=== PATIENT | female | born 1965 | race Caucasian/White ===

== ENCOUNTER 2023-01-18 19:20 | Emergency (ER) | payer BC, SELFPAY ==
[2023-01-18 19:24] VITALS: BP 112/86; PULSE 81; RESP 16; TEMP 36.4; O2SAT 95; BMI 28.8
--- NOTE | 2023-01-18 20:06 | EX.ED.DYSGE1 ---
HPI History of Present Illness Chief Complaint: Overdose Detail of Chief Complaint: Accidental overdose and vomiting Informant: patient Narrative Narrative: Patient presents to the emergency department with complaint of vomiting. Patient states that she accidentally took too much semaglutide 5 days ago. She was supposed to take 0.5 mL and she took 5 mL that she takes for weight loss. This was the first time she had taken it. Since that time she is been vomiting severely and cannot keep anything down. She complains of upper abdomen pain and cramping. She denies any diarrhea. She denies fevers. Patient has history of hypertension and high cholesterol. She had prior appendectomy and prior hysterectomy. PFSH [facility] Home Medications alprazolam 0.5 mg tablet 0.5 mg PO DAILY 01/18/23 [History Last Taken Unknown] amlodipine 5 mg tablet 5 mg PO DAILY 01/18/23 [History Last Taken Unknown] atorvastatin 20 mg tablet 20 mg PO DAILY 01/18/23 [History Last Taken Unknown] esomeprazole magnesium 40 mg capsule,delayed release (Nexium) 40 mg PO BID 01/18/23 [History Last Taken Unknown] fluoxetine 40 mg capsule 40 mg PO DAILY 01/18/23 [History Last Taken Unknown] losartan 50 mg tablet 50 mg PO DAILY 01/18/23 [History Last Taken Unknown] ondansetron 4 mg disintegrating tablet 4 mg PO Q8H PRN PRN Nausea #10 tabs 01/18/23 [Rx Last Taken Unknown] piroxicam 10 mg capsule 10 mg PO DAILY 01/18/23 [History Last Taken Unknown] prednisone 20 mg tablet 20 mg PO BID #10 tabs 01/18/23 [Rx Last Taken Unknown] quetiapine 400 mg tablet (Seroquel) 400 mg PO DAILY 01/18/23 [History Last Taken Unknown] trazodone 100 mg tablet 100 mg PO QHS 01/18/23 [History Last Taken Unknown] Allergy/AdvReac Type Severity Reaction Status Date / Time trifluoperazine Allergy Anaphylaxis Verified 01/18/23 19:29 [From Stelazine] Social History Smoking Status: Never smoker ROS ROS ED Review of Systems ROS Unobtainable: other Constitutional Constitutional ED: Reports lethargy; Denies chills, fever(s), sweats or weight loss Eyes Eyes: Denies blurry vision, change in vision or diplopia ENT ENT ED: Denies rhinorrhea or sore throat Cardiovascular Cardiovascular: Denies chest pain, orthopnea or racing heartbeat Respiratory/Chest Respiratory/Chest: Denies cough, dyspnea, dyspnea on exertion, orthopnea or sputum Gastrointestinal Gastrointestinal: Reports abdominal pain, nausea and vomiting; Denies diarrhea Genitourinary Genitourinary ED: Denies dysuria, hematuria or urinary frequency Musculoskeletal Musculoskeletal: Denies arthralgias, back pain, myalgias or neck pain Integumentary Denies abscess, Abrasions or rash Neurologic Neurologic: Denies headache(s) or weakness Psychiatric Psychiatric: Denies anxiety, depression or suicidal thoughts Endocrine Endocrinology: Denies polydipsia, polyphagia or polyuria Hematologic/Lymphatic Hematologic/Lymphatic: Denies easy bleeding, easy bruising or lymphadenopathy Allergic/Immunologic Allergic/Immunologic ED: Denies mouth swelling, tongue swelling or urticaria EXAM Physical Exam Const Vital Signs: 01/18/23 19:24 01/18/23 20:07 Temperature 97.5 F L Temperature Source Temporal Pulse Rate 81 Respiratory Rate 16 Respiratory Pattern Normal Blood Pressure 112/86 H Blood Pressure Mean 94 Pulse Ox 95 Positive well nourished and well developed General Appearance ED: well developed and NAD HEENT Reports TM's clear and moist mucous membranes normocephalic and atraumatic; Negative for trauma or tenderness Tympanic Membrane ED: Yes TM's clear Eyes PERRL and EOMs intact bilaterally General Eye ED: Negative for pale conjunctiva or scleral icterus Neck no lymphadenopathy, supple and no JVD General: Negative for tenderness Chest Wall inspection of chest normal and palpation of chest normal Chest: Negative for tenderness Resp normal respiratory effort and clear to auscultation bilaterally Effort and Inspection: Negative for respiratory distress or pain with movement Auscultation: Negative for rhonchi, wheezes or diminished lung sounds Cardio regular rate, regular rhythm, S1 normal heart sound, S2 normal heart sound and no murmurs Peripheral Pulses: pulses 2+ throughout GI normal to inspection, nondistended, normoactive bowel sounds, soft to palpation, non-distended and no masses GI Narrative: Tenderness to epigastric region with guarding. There is no rebound, rigidity, peritoneal signs. Back/Spine no CVA tenderness and no thoracic nor lumbar tenderness Extremity normal to inspection General Extremety ED: Negative for edema General Extremity: Negative for edema Neuro oriented x3, CN's II-XII intact bilaterally, no sensory deficits noted and gait normal Sensorium / Orientation: awake, alert, oriented to person, oriented to place and oriented to time Motor Exam: strength 5/5 throughout and strength abnormal Psych mental status grossly normal Skin no wounds Skin Narrative: Patient has a red raised rash involving the face as well as the trunk and extremities would be consistent with hives. MDM MDM MDM Narrative Medical decision making narrative: Patient presents with accidental overdose of semaglutide and with known side effect being nausea. There is no direct antidote. Overdose occurred 5 days ago. There is concern for pancreatitis as patient has had this in the past and given where her pain is in persistent vomiting will need work-up for this. Patient will have an IV line established and she will be given fluids and basic labs will be ordered. Patient had a CBC with differential, 7.0 with a hemoglobin of 15 and platelet count of 253. Chemistries unremarkable other than a slightly depressed potassium of 3.4. Glucose was 137. Lipase 48. LFTs normal. Lactate was normal at 0.6. Urinalysis was normal. CT scan of the abdomen pelvis without contrast Lab Data Attestation: I reviewed the patient's lab results. Labs: Laboratory Results - last 24 hr 01/18/23 01/18/23 01/18/23 20:10 20:10 20:10 WBC 7.0 RBC 5.02 Hgb 15.5 H Hct 46.1 MCV 91.8 MCH 30.9 MCHC 33.6 RDW Std Deviation 38.5 RDW Coeff of Frantz 11.4 L Plt Count 253 MPV 9.7 Immature Gran % (Auto) 0.300 Neut % (Auto) 59.6 Lymph % (Auto) 26.6 Kemper % (Auto) 7.7 Eos % (Auto) 4.9 Baso % (Auto) 0.9 Absolute Neuts (auto) 4.2 Absolute Lymphs (auto) 1.86 Nucleated RBC % 0 Sodium 137 Potassium 3.4 L Chloride 105 Carbon Dioxide 24.0 Anion Gap 8 BUN 19 H Creatinine 0.91 Estim Creat Clear Calc 55.06 Est GFR (MDRD) Af Amer 82 Est GFR (MDRD) Non-Af 67 BUN/Creatinine Ratio 21.0 H Glucose 137 H Lactic Acid 0.6 Calcium 9.5 Total Bilirubin 0.50 AST 13 L ALT 19 Alkaline Phosphatase 91 Total Protein 7.3 Albumin 3.8 Globulin 3.5 Albumin/Globulin Ratio 1.1 Lipase 48 Urine Color Urine Clarity Urine pH Ur Specific Hudson Urine Protein Urine Glucose (UA) Urine Ketones Urine Occult Blood Urine Nitrite Urine Bilirubin Urine Urobilinogen Ur Leukocyte Esterase Urine RBC Urine WBC Ur Squamous Epith Cells Urine Bacteria Urine Mucus 01/18/23 21:09 WBC RBC Hgb Hct MCV MCH MCHC RDW Std Deviation RDW Coeff of Frantz Plt Count MPV Immature Gran % (Auto) Neut % (Auto) Lymph % (Auto) Kemper % (Auto) Eos % (Auto) Baso % (Auto) Absolute Neuts (auto) Absolute Lymphs (auto) Nucleated RBC % Sodium Potassium Chloride Carbon Dioxide Anion Gap BUN Creatinine Estim Creat Clear Calc Est GFR (MDRD) Af Amer Est GFR (MDRD) Non-Af BUN/Creatinine Ratio Glucose Lactic Acid Calcium Total Bilirubin AST ALT Alkaline Phosphatase Total Protein Albumin Globulin Albumin/Globulin Ratio Lipase Urine Color Yellow Urine Clarity Clear Urine pH 6.0 Ur Specific Hudson 1.015 Urine Protein Negative Urine Glucose (UA) Normal Urine Ketones 5 H Urine Occult Blood 25 H Urine Nitrite Negative Urine Bilirubin Negative Urine Urobilinogen Normal Ur Leukocyte Esterase 25 H Urine RBC 0 SEEN Urine WBC 0-5 SEEN Ur Squamous Epith Cells 0 SEEN Urine Bacteria 0 SEEN Urine Mucus 0 SEEN Radiography Diagnostic Testing: Clinical Impression(s) from Imaging Studies Abdomen/Pelvis CT 01/18/23 21:15 IMPRESSION: (NOT LISTED IN ORDER OF SIGNIFICANCE) There are no acute findings. There are multiple colonic diverticula consistent with diverticulosis. Other findings as above. Electronically Signed: Larry Cheung MD at 21:50 EDT Reading Location ID and State: [facility] / ID , Service support , Discharge Plan Triage Chief Complaint: Overdose ED Provider: Deanna Weiss Dx/Rx/DC Orders Clinical Impression: Accidental drug overdose, Vomiting, Urticaria Instructions: ED Drug Reaction, Other, ED Hives (Adult), ED Vomiting (Adult) Prescriptions: New ondansetron [ondansetron] 4 mg tablet,disintegrating 4 mg PO Q8H PRN PRN (Reason: Nausea) Qty: 10 0RF prednisone 20 mg tablet 20 mg PO BID Qty: 10 0RF No Action losartan 50 mg Tablet 50 mg PO DAILY fluoxetine 40 mg Capsule 40 mg PO DAILY atorvastatin 20 mg Tablet 20 mg PO DAILY amlodipine 5 mg Tablet 5 mg PO DAILY alprazolam 0.5 mg Tablet 0.5 mg PO DAILY trazodone 100 mg Tablet 100 mg PO QHS esomeprazole magnesium [Nexium] 40 mg Capsule,Delayed Release(Dr/Ec) 40 mg PO BID piroxicam 10 mg Capsule 10 mg PO DAILY quetiapine [Seroquel] 400 mg Tablet 400 mg PO DAILY Primary Care Provider: Jenny Doctor,Out of Referrals: Colleen Roberts MD [Med Staff - [employer] Project Manager] - 3-5 Days [facility] Doctor,Out of [Primary Care Provider] - Disposition Disposition: Home, Self Care
[2023-01-18] MEDS: 0.9% Normal Saline 1,000 ML 1000 ML IV (20:10)
[2023-01-18] MEDS: Ondansetron 4 MG/2 ML Vial IV (20:19)
[2023-01-18 20:31] LABS: Absolute Lymphocyte Count 1.86 X10^3/uL (0.83-4.51); Absolute Neutrophil Count 4.2 X10^3/uL (2.0-7.7); Basophil# 0.06 X10^3/uL; Basophil% 0.9 % (0-1); Eosinophil# 0.34 X10^3/uL; Eosinophils% 4.9 % (0-5); Hematocrit 46.1 % (37-47); Hemoglobin 15.5 g/dL (12.0-15.0); Lymphocyte # 1.86 X10^3/ul (0.83-4.51); Lymphocyte % 26.6 % (19-41); Mean Corp Hgb Conc 33.6 g/dL (32-36); Mean Corpuscular Hgb 30.9 pg (27.0-32.0); Mean Corpuscular Volume 91.8 fL (81-99); Mean Platelet Vol. 9.7 fl (6.2-12.0); Monocyte# 0.54 X10^3/uL; Monocyte% 7.7 % (0-10); NRBC Flagged by Analyzer 0 % (0-5); Neutrophil # 4.16 X10^3/uL (2.7-7.7); Neutrophil % 59.6 % (47-70); Platelet Count 253 K/mm3 (150-450); RBC Distribution Width CV 11.4 % (11.6-14.6); RBC Distribution Width SD 38.5 fl (35.1-43.9); Red Blood Count 5.02 M/mm3 (4.2-5.4)
[2023-01-18 20:48] LABS: ALB/GLOB Ratio 1.1 RATIO (0.9-2.4); AST(SGOT) 13 U/L (15-37); Alanine Aminotransfer ALT/SGPT 19 U/L (13-56); Albumin, Serum 3.8 g/dL (3.2-5.0); Alkaline Phosphatase 91 U/L (45-117); Anion Gap 8 (5-15); BUN 19 mg/dL (7-18); Calcium,Total 9.5 mg/dL (8.5-10.1); Chloride 105 mmol/L (98-107); Creatinine, Serum 0.91 mg/dL (0.55-1.02); EST Glomerular Filtration Rate 67 mL/min (>60); Est Glom Filt Rate - Afr Amer 82 mL/min (>60); Estimated Creatinine Clearance 55.06 ml/min; Globulin 3.5 g/dL (2.2-4.2); Glucose 137 mg/dL (74-106); Lipase 48 U/L (13-75); Potassium 3.4 mmol/L (3.5-5.1); Protein, Total 7.3 g/dL (6.4-8.2); Sodium Level 137 mmol/L (136-145)
[2023-01-18 20:57] LABS: Lactic Acid 0.6 mmol/L (0.4-1.9)
[2023-01-18 21:15] LABS: Bacteria 0 SEEN /hpf (None Seen); Mucous, Urine 0 SEEN /hpf (<or=2+); Red Blood Cells-Urine 0 SEEN /hpf (0-5); Squamous Epithelial Cells - UA 0 SEEN /hpf (5-10)
--- NOTE | 2023-01-18 21:15 | CT_ITS ---
STUDY: CT Abdomen And Pelvis W/O Contrast Injection 01/18/2023 9:45 PM REASON FOR EXAM: Female, 57 years old. VOMITING AND UPPER ABDOMEN PAIN X 5 DAYS,RASH ALL OVER BODT TODAY,THIS STARTED AFTER TAKING TOO MUCH WEIGHT LOSS MEDICATION HX:HLD,HTN,APPENDECTOMY,HYST AIN abdominal pain TECHNIQUE: Transaxial images were obtained without oral contrast, and without intravenous contrast. Individualized dose optimization techniques were used for this CT. COMPARISON: None. FINDINGS: The visualized lung bases are unremarkable. The visualized portions of the heart are within normal limits. Unremarkable liver. There are surgical clips in the gallbladder fossa consistent with a prior cholecystectomy. Unremarkable spleen. Unremarkable pancreas. Unremarkable bilateral adrenal glands. No acute findings of the right kidney. No acute findings of the left kidney. Unremarkable visualized stomach. Unremarkable small intestine. There are multiple colonic diverticula consistent with diverticulosis. There is non-visualization of the appendix. There are no acute findings of the abdominal aorta. There is an IVC filter in place. Subcentimeter mesenteric lymph nodes. Unremarkable urinary bladder. There is absence of the uterus consistent with a prior hysterectomy. Previous left inguinal hernia repair. Unremarkable osseous structures. CT/Abdomen/Pelvis without Cont IMPRESSION: (NOT LISTED IN ORDER OF SIGNIFICANCE) There are no acute findings. There are multiple colonic diverticula consistent with diverticulosis. Other findings as above. Electronically Signed: Larry Cheung MD at 21:50 EDT ,
[2023-01-18 21:25] LABS: Color, Urine Yellow (Yellow); Glucose, Dipstick Normal (Normal); Ketone-Dipstick 5 mg/dl (Negative); Leukocyte Esterase-Dipstick 25 /ul (Negative); Nitrite-Dipstick Negative (Negative); Occult Blood-Urine 25 /ul (Negative); Protein-Dipstick Negative (Negative); Specific Gravity, Urine 1.015 (1.002-1.030); Urine Bilirubin Dipstick Negative (Negative); Urine Clarity Clear (Clear); Urine Urobilinogen Normal (Normal)
[2023-01-18 21:31] LABS: White Blood Cells 0-5 SEEN /hpf (0-5)
[2023-01-18] MEDS: predniSONE 20 MG Tablet 40 MG PO (22:00)
[2023-01-18 22:04] VITALS: BP 126/64; PULSE 72; RESP 18; O2SAT 98
== END 2023-01-18 22:56 | disposition home or self-care (01) ==
PROVIDERS: Emergency Provider Emergency Medicine; Visit Provider Emergency Medicine
DX: T50.991A Poisoning by other drugs, medicaments and biological substances, accidental (unintentional), initial encounter (principal); R11.10 Vomiting, unspecified; L50.9 Urticaria, unspecified; I10 Essential (primary) hypertension; E78.00 Pure hypercholesterolemia, unspecified; Z79.899 Other long term (current) drug therapy
CPT/HCPCS: 74176; 80053; 81001; 83605; 83690; 85025; 99284; J2405